=== PATIENT | male | born 1985 | race Two or more races ===

== ENCOUNTER 2020-11-14 03:53 | Emergency (ER) | payer SELFPAY ==
--- NOTE | 2020-11-14 03:54 | NUR ---
PATIENT CALLED TO [facility], NO RESPONSE
--- NOTE | 2020-11-14 04:30 | NUR ---
PATIENT CALLED TO TRIAGE A SECOND TIME, NO RESPONSE
== END 2020-11-14 04:40 | disposition left against medical advice (07) ==
LOC: ER 03:59
DX: Z53.21 Procedure and treatment not carried out due to patient leaving prior to being seen by health care provider (principal)